=== PATIENT | female | born 1980 | race Caucasian/White ===

== ENCOUNTER 2021-09-10 00:24 | Day surgery (SDC) | payer BC, SELFPAY ==
[2021-09-02 10:52] VITALS: BMI 30.9
--- NOTE | 2021-09-02 11:05 | PC.NURSE ---
Report to the Outpatient Waiting Room, entrance under the green pavilion located off [facility], at time 0730 on date 09/10/21. OR Time: 0930. - You and your visitor will be asked a series of questions to screen for COVID 19 for your protection. - A mask is required within the hospital. One visitor will be allowed to accompany the patient into the hospital. Patients visitor will be instructed to remain with patient at all times or leave the building. We will allow the visitor to come back to the postoperative area when patient is ready. Preoperative COVID Testing Requirements: E-MAILING COPY OF CARD No COVID Test needed if: (proof is required; if not received patient will have Rapid Test prior to entry) - Patient has received COVID Vaccine at least 14 days prior to procedure date or - Patient has positive COVID test result within last 90 days of surgery date. COVID Test needed if above criteria is not met Patients may have clear liquids (water, carbonated beverages, clear teas, apple juice) until 3 hours prior to surgery with a maximum of 20 ounces. - No food from midnight until time of surgery Take the following medications with a SIP of water the morning of surgery: BUSPIRONE Medications to discontinue per physician: VITAMINS/SUPPLEMENTS Date to take last dose: 09/06/21 Please no make-up, nail ivorian, hairspray, perfume, deodorant, or body powder the day of surgery. No jewelry (including any body piercings) or valuables the day of surgery, leave them at home. Please take a shower or bath the night before, or the morning of, surgery with an antibacterial soap. Wear comfortable, loose fitting clothing. - Jewelry must be removed prior to entering the operating room. Rings and piercings that are not removed may be cut off. - The hospital will not accept responsibility for valuables. - Please leave all valuables, including medications, at home the day of surgery. If you are going home after surgery, a licensed local company refrigerated truck driver must drive you home. - NO public transportation without another adult. - We recommend that an adult stay with you for 24 hours following discharge. - We also recommend that you do not drive, make important decision, drink alcoholic beverages, or take any drugs that were not prescribed by your health care provider for at least 24 hours after your discharge time. Follow any additional instructions given to you from your surgeon. Telephone instructions given to ALPA SIMMONS and asked if any additional questions and then verbalized understanding. Patient advised to call surgeon office or pre surgery nurse liaison [phone] if any additional questions.
--- NOTE | 2021-09-09 09:52 | WPDANESEPPF ---
Anes - Initial Pre Proc Eval Procedure: Operation Date: 09/10/21 07:30 Proposed Procedures p Hysteroscopy with Genet Endometrial Ablation, Bilateral Laparoscopic Salpingectomy - Daria Calabrese MD Date/Time: 09/09/21 09:52 Surgeon: Daria Calabrese MD Pre Op Diagnosis: menorrhagia, sterilization Patient Data Age: 41 Gender: F Height: 1.63 m Weight: 81.65 kg Allergies Allergy/AdvReac Type Severity Reaction Status Date / Time Sulfa (Sulfonamide Allergy Severe Hives Verified 09/10/21 06:15 Antibiotics) Home Medications Medication Instructions Recorded Confirmed Type buprenorphine-naloxone 1 film SUBLINGUAL BID 09/02/21 09/02/21 History buspirone 5 mg PO TID 09/02/21 09/02/21 History [id number] 1 tablet PO DAILY 09/02/21 09/02/21 History [] Patient hx anesthesia problems: none Family hx anesthesia problems: none Results Review: All pre-operative results and documents have been reviewed as part of the pre-operative evaluation. [facility] Past Medical History Medical History (Updated 09/09/21 @ 09:52 by Uche Samano DO) Anxiety Surgical History Surgical History (Updated 09/09/21 @ 09:52 by Uche Samano DO) History of appendectomy Social History Social History Smoking packs per day: 0.75 Smoking cigarettes per day: 15.0 Years smoked: 7 Smoking pack-years: 5.25 Smoking status: Former smoker Tobacco type: cigarettes Smoking end date: 06/28/14 Alcohol intake: never Substance use: current Substance use type: marijuana Other substance usage details: CBD Living arrangements: with family Spiritual care concerns: No Anes - Eval Final PreProcedure Day of Procedure 09/09/21 09:52 Patient weight: obese Heart: regular rate and rhythm Lungs: clear to auscultation and normal air movement Airway: Mallampati scale class II Neurological: alert and oriented Last oral intake: >/= 8 hours ASA classification: III Emergent: no Anesthetic plan: proceed Anesthesia type and monitoring: general ETT and standard monitoring Results Review: All pre-operative results and documents have been reviewed as part of the pre-operative evaluation. Informed Consent: The patient's anesthetic plan and its attendant risks and benefits were discussed with the patient/family/POA. Questions were solicited and answers provided to the satisfaction of the patient/family/POA.
[2021-09-10] VITALS (9 sets, daily range): BP systolic 105–145; BP diastolic 46–78; PULSE 55–69; RESP 12–20; TEMP 36.1–36.3; O2SAT 97–100
[2021-09-10] MEDS: ACETAMINOPHEN 500 MG TABLET 1000 MG PO (06:49)
[2021-09-10] MEDS: LACTATED RINGERS 1,000 ML 30 ML IV CONT ×2 (06:50→08:27)
[2021-09-10] MEDS: KETOROLAC 15 MG/ML VIAL (*BKC) IV PUSH ×2 (06:53→10:30)
--- NOTE | 2021-09-10 07:22 | WPDHPUPDATE1 ---
History and Physical Update Update Date/Time: 09/10/21 07:22 History and Physical has been reviewed, including an updated exam of the patient. There are NO changes in the patient's condition. Risks, benefits, and alternatives have been discussed and questions answered. Patient agrees to proceed with procedure.
--- NOTE | 2021-09-10 08:38 | P.OP_ITS ---
Procedure Note - Detailed Date of Procedure 09/10/21 Pre-op Diagnosis menorrhagia, sterilization Post-op Diagnosis Same Procedure Performed Laparoscopic bilateral salpingectomy with endometrial ablation and hysteroscopy. Surgeon Daria Calabrese MD Anesthesia General Indications Menorrhagia, female sterilization Description of Procedure Patient was taken the operating room. She has prepped draped in the dorsal lithotomy position after induction of general anesthesia. A 5 mm abdominal incision was made in left upper quadrant of the abdomen with scalpel. A 5 mm trocars inserted the intra-abdominal cavity under direct visualization of the scope. Pneumoperitoneum was achieved. A 5 mm periumbilical incision was made using a scalpel on the abdominal scan. A 5 mm trocar was inserted the intra- abdominal cavity under visualization of the scope. A 5 mm incision made left lower quadrant of the abdomen. A 5 mm trocar was inserted the intra-abdominal cavity and direct visualization of the scope. The bilateral fallopian tubes were removed. The paratubal tissue in the area of the uterus was grasped with the LigaSure cautery and transected after being cauterized. The paratubal tissue from the ovary to the uterine cornu was cauterized and transected with LigaSure cautery. This was all done in a bilateral fashion. The tube was transected at the area of the uterine cornua and the tubes was removed through the 5 mm trocar site. The pneumoperitoneum was reduced. The trocars were removed. The skin was closed with subcuticular 4 Monocryl and covered with Dermabond. Our attention was then turned to the endometrial ablation portion of the procedure. A speculum was placed in the vagina. The cervix was grasped with a tenaculum. The cervix was dilated to approximately 8 mm with Salvador dilators. The hysteroscope was inserted. And the below findings were noted. All of the intrauterine surfaces were curettaged with a medium-size curette and the specimens were collected. Measurements of the cervix were taken using the uterine sound and the hysteroscope. The intrauterine cavity measurements were entered into the handpiece. The device was inserted into the intrauterine cavity and the array was expanded. The balloon cuff was inflated. When an adequate seal was formed the safety and energy cycles were initiated and completed. The array was collapsed, the balloon was deflated. The insert was withdrawn. The hysteroscope was reinserted and a well desiccated intrauterine cavity was observed. The patient was taken recovery room stable condition. Sponge lap and needle counts were correct x2. She tolerated the procedure well. Pathology Yes Complications No immediate complications Condition Stable Disposition PACU
[2021-09-10] MEDS: fentaNYL CITRATE INJ (*CRX) 100 MCG/2 ML VIAL 25 MCG IV PUSH ×8 (08:40→10:04)
[2021-09-10] MEDS: oxyCODONE HCL (*CRX) 5 MG TAB IR PO (10:07)
== END 2021-09-10 10:40 | disposition home or self-care (01) ==
PROVIDERS: PCP Internal Medicine; Visit Provider Obstetrics & Gynecology
PROC: 0UDB8ZZ Extraction of Endometrium, Via Natural or Artificial Opening Endoscopic (ICD-10-PCS; CPT 58558; principal; 2021-09-10 07:30)
DX: N92.0 Excessive and frequent menstruation with regular cycle (principal); Z30.2 Encounter for sterilization; N73.6 Female pelvic peritoneal adhesions (postinfective); F41.9 Anxiety disorder, unspecified; Z87.891 Personal history of nicotine dependence; F12.90 Cannabis use, unspecified, uncomplicated; E66.9 Obesity, unspecified; Z68.30 Body mass index [BMI] 30.0-30.9, adult
CPT/HCPCS: 58661; 58563; 88302; 88305; A9270; J1100; J1170; J1885; J2250; J2405; J2704; J2710; J3010; J7030; J7120

== ENCOUNTER 2022-08-13 00:46 | Day surgery (SDC) | payer BC, SELFPAY ==
[2022-07-30 14:53] VITALS: BMI 27.4
--- NOTE | 2022-07-30 15:00 | PC.NURSE ---
Report to the Outpatient Waiting Room, entrance under the green pavilion located off [facility], at time 0730 on date 08/13/22. Planned Procedure Time: 0930. Time changes happen often and if your time is changed the preop area will call you the afternoon before. - You and your visitor will be asked to self-screen and do not enter if you have any COVID symptoms. - Only one visitor is requested with a max of two and NO children visitors are allowed at this time. - The patient visitor may be requested to leave or wait in car when not with patient due to distancing restrictions. - A mask is optional within the hospital at this time. Patients may have clear liquids (water, carbonated beverages, clear teas, apple juice) until 3 hours prior to surgery with a maximum of 20 ounces. - No food from midnight until time of surgery Take the following medications with a SIP of water the morning of surgery: BUSPIRONE, SUBOXONE DO NOT STOP ANY OF YOUR OTHER PRESCRIPTION MEDICATIONS PRIOR TO SURGERY EXCEPT THE FOLLOWING Medications to discontinue per physician: VITAMINS Date to take last dose: 08/09/22 Please no make-up, nail belgian, hairspray, perfume, deodorant, or body powder the day of surgery. No jewelry (including any body piercings) or valuables the day of surgery, leave them at home. Please take a shower or bath the night before, or the morning of, surgery with an antibacterial soap. Wear comfortable, loose fitting clothing. - Jewelry must be removed prior to entering the operating room. Rings and piercings that are not removed may be cut off. - The hospital will not accept responsibility for valuables. - Please leave all valuables, including medications, at home the day of surgery. If you are going home after surgery, a licensed miniature train driver must drive you home. - NO public transportation without another adult if you receive anesthesia. - We recommend that an adult stay with you for 24 hours following discharge. - We also recommend that you do not drive, make important decision, drink alcoholic beverages, or take any drugs that were not prescribed by your health care provider for at least 24 hours after your discharge time. Follow any additional instructions given to you from your surgeon. If you or anyone in your household have experienced Covid symptoms in the past week, please notify your surgeon or the nurse liaison at the phone number below for possible testing. Telephone instructions given to PT Vickie SIMMONS and asked if any additional questions and then verbalized understanding. Patient advised to call surgeon office or pre surgery nurse liaison [phone] if any additional questions.
--- NOTE | 2022-08-13 07:09 | WPDHPUPDATE1 ---
History and Physical Update Update Date/Time: 08/13/22 07:09 History and Physical has been reviewed, including an updated exam of the patient. There are NO changes in the patient's condition. Risks, benefits, and alternatives have been discussed and questions answered. Patient agrees to proceed with procedure.
[2022-08-13 10:52] VITALS: BP 118/67; PULSE 76; RESP 14; TEMP 37.3; O2SAT 100
[2022-08-13] MEDS: LACTATED RINGERS 1,000 ML 30 ML IV CONT (10:58)
--- NOTE | 2022-08-13 11:25 | WPDANESEPPF ---
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 Patient Data Age: 42 Gender: F Height: 1.63 m Weight: 72.65 kg Last Vital Signs Temp 99.2 F 08/13/22 10:52 Pulse 76 08/13/22 10:52 Resp 14 08/13/22 10:52 BP 118/67 08/13/22 10:52 Pulse Ox 100 08/13/22 10:52 O2 Del Method Room Air 08/13/22 10:52 Allergies Allergy/AdvReac Type Severity Reaction Status Date / Time Sulfa (Sulfonamide Allergy Severe Hives Verified 08/13/22 10:58 Antibiotics) Home Medications Medication Instructions Recorded Confirmed Type buprenorphine 2 mg-naloxone 0.5 mg 1 film sublingual BID 09/02/21 08/13/22 History sublingual film buspirone 5 mg tablet 5 mg PO TID 09/02/21 07/30/22 History multivitamin 1 tablet PO DAILY 07/30/22 07/30/22 History phentermine 37.5 mg capsule 37.5 mg PO DAILY 07/30/22 07/30/22 History Patient hx anesthesia problems: post op nausea/vomiting Family hx anesthesia problems: none Results Review: All pre-operative results and documents have been reviewed as part of the pre-operative evaluation. [facility] Past Medical History Medical History (Updated 09/10/21 @ 08:39 by Daria Calabrese MD) Anxiety Surgical History Surgical History (Updated 09/09/21 @ 09:52 by Uche Samano DO) History of appendectomy Social History Social History Smoking packs per day: 1 Smoking cigarettes per day: 20.0 Years smoked: 16 Smoking pack-years: 16.00 Smoking status: Former smoker Tobacco type: cigarettes Smoking end date: 06/28/12 Alcohol intake: never Substance use: former Substance use type: marijuana and prescription drug Other substance usage details: FORMER RX PAIN PILLS, CURRENT OCCASIONAL MJ USE Last use: 06/21/23 Living arrangements: with family Spiritual care concerns: No Anes - Eval Final PreProcedure Day of Procedure 08/13/22 11:25 Patient weight: normal Heart: regular rate and rhythm Lungs: clear to auscultation Airway: Mallampati scale class II Neurological: alert and oriented Last oral intake: >/= 8 hours ASA classification: II Emergent: no Anesthetic plan: proceed Anesthesia type and monitoring: general GIVS and standard monitoring Results Review: All pre-operative results and documents have been reviewed as part of the pre-operative evaluation. Informed Consent: The patient's anesthetic plan and its attendant risks and benefits were discussed with the patient/family/POA. Questions were solicited and answers provided to the satisfaction of the patient/family/POA.
[2022-08-13] MEDS: LIDO 1%/EPINEPHRINE 1:100,000 20 ML VIAL INFILTRATE (12:55)
[2022-08-13] MEDS: BACITRACIN OINTMENT 15 GM TUBE 1 APPLIC TOPICAL (12:56)
[2022-08-13 13:15] VITALS: BP 94/53; PULSE 84; RESP 12; O2SAT 98
[2022-08-13 13:45] VITALS: BP 101/61; PULSE 75; RESP 12; O2SAT 98
[2022-08-13 14:15] VITALS: BP 122/66; PULSE 67; RESP 12
--- NOTE | 2022-08-13 14:21 | W.PM.PROC2 ---
Procedure Note - Detailed Date of Procedure 08/13/22 Pre-op Diagnosis Right Carpal Tunnel Synd Post-op Diagnosis Same Procedure Performed Right open carpal tunnel release Surgeon Joaquin Tinsley MD Anesthesia MAC Description of Procedure The right carpal tunnel site was marked on the patient with her consent in the holding area. She was taken to the operating room placed supine on the operating table. She was given IV sedation. A time-out was held and confirmed. The right upper extremity was prepped and draped in usual fashion. The site was remarked for the incision and locally infiltrated with 1% lidocaine with epinephrine. The extremity was exsanguinated and the tourniquet inflated to 250 mmHg. The incision was made as marked and dissection was carried bluntly through the subcutaneous tissue to the palmar fascia. This was incised with scissors and 15 blade. The carpal retinaculum was identified and under 3 point retraction was incised and divided distally and proximally for complete release firs no unusual anatomy was noted. The wound was closed with interrupted 5 0 nylon. The tourniquet was released and she is discharge with instructions in wound care and follow-up. No prescription was transmitted to her pharmacy Estimated Blood Loss 1 Tourniquet Time 9 Drains No Packing No Pathology None sent Complications No immediate complications Condition Stable Disposition Same day
[2022-08-13 14:40] VITALS: BP 103/65; PULSE 71; RESP 12
== END 2022-08-13 15:00 | disposition home or self-care (01) ==
PROVIDERS: PCP Internal Medicine; Visit Provider Plastic Surgery
PROC: (CPT 64721; principal; 2022-08-13 11:30)
DX: G56.01 Carpal tunnel syndrome, right upper limb (principal); F41.9 Anxiety disorder, unspecified; Z87.891 Personal history of nicotine dependence; F12.90 Cannabis use, unspecified, uncomplicated
CPT/HCPCS: 64721; A9270; J2250; J2704; J3010; J7120